=== PATIENT | female | born 1960 | race Caucasian/White ===

== ENCOUNTER 2020-05-14 07:18 | Emergency (ER) | payer OTHER, SELFPAY ==
[2020-05-14 08:11] VITALS: BP 153/74; PULSE 75; RESP 16; TEMP 36.6; O2SAT 98; BMI 32.0
--- NOTE | 2020-05-14 08:29 | XR_ITS ---
EXAMINATION: RIGHT FOOT, RIGHT ANKLE AND RIGHT TIBIA AND FIBULA. CLINICAL INFORMATION: Fall. COMPARISON: None TECHNIQUE: 3 views right foot. 2 views right ankle and 2 views right tibia and fibula. FINDINGS: RIGHT FOOT: There is hallux valgus deformity first MTP joint. No visible acute fracture, dislocation or subluxation. There is absent distal segment proximal phalanx fourth digit likely surgically or congenitally absent. RIGHT ANKLE: There is no visible acute fracture, dislocation or subluxation. There is mild lateral malleolar soft tissue swelling laterally ligamentous injury. The soft tissues are normal. RIGHT TIBIA AND FIBULA: There is a comminuted fracture proximal fibula with mild anterior displacement of distal fragment. No other fractures seen. Minimal prominence of soft tissue. XR/XR foot RT min 3V IMPRESSION: Hallux valgus deformity first MTP joint with no visible acute fracture or dislocation right foot. Lateral malleolar soft tissue swelling right ankle likely ligamentous injury. No visible fracture seen. Comminuted fracture proximal fibula.
--- NOTE | 2020-05-14 08:29 | XR_ITS ---
EXAMINATION: RIGHT FOOT, RIGHT ANKLE AND RIGHT TIBIA AND FIBULA. CLINICAL INFORMATION: Fall. COMPARISON: None TECHNIQUE: 3 views right foot. 2 views right ankle and 2 views right tibia and fibula. FINDINGS: RIGHT FOOT: There is hallux valgus deformity first MTP joint. No visible acute fracture, dislocation or subluxation. There is absent distal segment proximal phalanx fourth digit likely surgically or congenitally absent. RIGHT ANKLE: There is no visible acute fracture, dislocation or subluxation. There is mild lateral malleolar soft tissue swelling laterally ligamentous injury. The soft tissues are normal. RIGHT TIBIA AND FIBULA: There is a comminuted fracture proximal fibula with mild anterior displacement of distal fragment. No other fractures seen. Minimal prominence of soft tissue. XR/XR ankle RT 2V IMPRESSION: Hallux valgus deformity first MTP joint with no visible acute fracture or dislocation right foot. Lateral malleolar soft tissue swelling right ankle likely ligamentous injury. No visible fracture seen. Comminuted fracture proximal fibula.
--- NOTE | 2020-05-14 08:29 | XR_ITS ---
EXAMINATION: RIGHT FOOT, RIGHT ANKLE AND RIGHT TIBIA AND FIBULA. CLINICAL INFORMATION: Fall. COMPARISON: None TECHNIQUE: 3 views right foot. 2 views right ankle and 2 views right tibia and fibula. FINDINGS: RIGHT FOOT: There is hallux valgus deformity first MTP joint. No visible acute fracture, dislocation or subluxation. There is absent distal segment proximal phalanx fourth digit likely surgically or congenitally absent. RIGHT ANKLE: There is no visible acute fracture, dislocation or subluxation. There is mild lateral malleolar soft tissue swelling laterally ligamentous injury. The soft tissues are normal. RIGHT TIBIA AND FIBULA: There is a comminuted fracture proximal fibula with mild anterior displacement of distal fragment. No other fractures seen. Minimal prominence of soft tissue. XR/XR tibia fibula RT 2V IMPRESSION: Hallux valgus deformity first MTP joint with no visible acute fracture or dislocation right foot. Lateral malleolar soft tissue swelling right ankle likely ligamentous injury. No visible fracture seen. Comminuted fracture proximal fibula.
--- NOTE | 2020-05-14 08:42 | ED_ITS ---
HPI - Extremity Injury (Lower) General Chief Complaint: Extremity Injury, Lower Stated Complaint: LEG PAIN Time Seen by Provider: 05/14/20 08:21 Source: patient Mode of arrival: ambulatory History of Present Illness HPI Narrative: 60-year-old female with a past medical history of asthma, hypertension presenting to the ED complaining of right lower extremity pain s/p mechanical fall last night. Reports leg gave out and fell to ground, denies head trauma or LOC. Denies other symptoms prior to fall. Reports associated numbness. Denies injury to other area. Reports difficulty with ambulating secondary to pain MD complaint: leg injury Related Data Previous Rx's Medication Instructions Recorded hydrocodone-acetaminophen [Mifflin] 1 tab PO Q8H PRN 3 Days #9 tab 05/14/20 Allergies Allergy/AdvReac Type Severity Reaction Status Date / Time Sulfa (Sulfonamide Allergy Unknown Unknown Verified 05/14/20 08:29 Antibiotics) Review of Systems Review of Systems: Constitutional: No Weight loss, No Fever, No Chills Cardiovascular: No Chest Pain, No SOB Respiratory: No Cough, No Sputum, No Wheezing Musculoskeletal:+ joint pain, No Myalgias, + Joint Swelling Skin: No Skin Lesions, No rash Neuro: No Weakness, + Numbness Yes all other systems are reviewed and are negative [facility] Past Medical History Attestation statement: The following information was validated with the patient. Medical History (Updated 05/14/20 @ 09:38 by MARCELL Adkins) Asthma Hypertension Surgical History (Updated 05/14/20 @ 08:13 by Brian Vuong) H/O tubal ligation Hx of appendectomy Physical Exam Vital Signs: Vital Signs: Last Vital Signs Temp 98.8 F 05/14/20 09:07 Pulse 87 05/14/20 09:07 Resp 16 05/14/20 09:07 BP 137/73 05/14/20 09:07 Pulse Ox 97 05/14/20 09:07 Body Mass Index 32.0 Const: General: cooperative and comfortable Orientation/consciousness: patient oriented x3 Limitations: no limitations HENMT: Head: Yes normal to inspection Ears: hearing grossly normal bilaterally General nose exam: Normal external nose present Face and sinus: Yes normal facial exam Eyes: General: appearance normal, both eyes and all related structures EOM: EOMs intact bilaterally Neck: Neck: Yes normal visual inspection and Yes no meningeal signs Resp: Effort & Inspection: normal respiratory effort Cardio: Rate: regular rate Peripheral pulses: dorsalis pedis present GI: Inspection: Yes normal to inspection Skin: Rashes: no rashes Wounds: no wounds Neuro: General: patient oriented x3 and no meningeal signs Extrem: Other: RLE with +ttp to proximal/mid fibula/tibia and lateral malleolus with swelling and ttp Sensation intact to light touch. Neurovascularly intact Limited ROM to ankle secondary to pain Course Course Course Narrative: X-ray showing comminuted fracture proximal fibula. And lateral malleolar soft tissue swelling with likely ligamentous injury > patient was placed in knee immobilizer and spine with crutches in the ED to follow-up with orthopedics. Nonweightbearing. MDM - Extremity Injury (Lower) MDM Narrative Medical decision making narrative: Concern for fracture versus dislocation chiquita nevaeh MSK pain Discharge Plan Discharge Clinical Impression: Fracture of fibula, proximal Qualifiers: Encounter type: initial encounter Fracture type: closed Fracture morphology: unspecified fracture morphology Laterality: right Qualified Code(s): S82.831A - Other fracture of upper and lower end of right fibula, initial encounter for closed fracture Sprain of ankle Qualifiers: Encounter type: initial encounter Involved ligament of ankle: unspecified ligament Laterality: right Qualified Code(s): S93.401A - Sprain of unspecified ligament of right ankle, initial encounter Patient Disposition: Home, Self-Care Instructions: Leg Fracture (ED) Additional Instructions: You have a fracture of her proximal fibula Keep knee immobilizer on at all times, only remove to shower Do not bear any weight on your right leg Follow-up with the orthopedic doctor within 1 week Ice and elevate her leg Take Tylenol Motrin every 4-6 hours In addition Mifflin is no opiate pain medication, take only when pain is severe for the next 3 days. Be aware Mifflin as Tylenol mixed in, do not exceed 4 g of Tylenol Thursday Prescriptions: New hydrocodone-acetaminophen [Mifflin] 5-325 mg tablet 1 tab PO Q8H PRN (Reason: severe pain) 3 Days Qty: 9 RF: 0 Referrals: Qasim Jose MD [Physician] - 1 week Interventions: ED Discharge Assessment Last Done: 05/14/20 09:47 Discharge Date/Time: 05/14/20 09:47
[2020-05-14 09:07] VITALS: BP 137/73; PULSE 87; RESP 16; TEMP 37.1; O2SAT 97
== END 2020-05-14 09:47 | disposition home or self-care (01) ==
PROVIDERS: Emergency Provider Emergency Medicine; PCP Internal Medicine
DX: S82.831A Other fracture of upper and lower end of right fibula, initial encounter for closed fracture (principal); S93.401A Sprain of unspecified ligament of right ankle, initial encounter; W18.30XA Fall on same level, unspecified, initial encounter; I10 Essential (primary) hypertension; Y93.9 Activity, unspecified; Y92.019 Unspecified place in single-family (private) house as the place of occurrence of the external cause; Y99.9 Unspecified external cause status
CPT/HCPCS: 73590; 73600; 73630; 99283

== ENCOUNTER → 2020-05-18 12:49 | Outpatient (BNVA) | payer OTHER, SELFPAY | PROVIDERS: PCP Internal Medicine; Visit Provider Physician Assistant ==

== ENCOUNTER 2020-07-17 14:40 | Outpatient (REF) | payer OTHER, SELFPAY ==
--- NOTE | ~2020-07-17 | MM_ITS ---
EXAMINATION: BONE DENSITOMETRY CLINICAL INDICATION: Screening for osteoporosis. COMPARISON: None (current study represents initial baseline exam). TECHNIQUE: Using a [employer] DXA System (software version: 13.1) manufactured by [employer], dual-energy x-ray absorptiometry was performed of the lumbar spine and left hip. The images are of good technical quality. Summary results are attached. FINDINGS: AP SPINE L1-L4: BMD 1.086 g/cm2, Z-score 0.2, T-score -0.8, normal. LEFT FEMUR, NECK: BMD 0.781 g/cm2, Z-score -0.8, T-score -1.8, osteopenia. LEFT FEMUR, TOTAL: BMD 0.863 g/cm2, Z-score -0.4, T-score -1.1, osteopenia. IDENTIFIED RISK FACTORS: Low calcium intake, history of fracture (adult), glucocorticoids (chronic), menopause. HISTORY OF FRACTURE: Lower leg/ankle. MEDICATIONS: None listed. MM/XR DEXA axial skeleton IMPRESSION: 1. DIAGNOSIS: Osteopenia based on the lowest T-score value of -1.8 in the femoral neck applying World Health Organization criteria. 2. 10-YEAR FRACTURE RISK PREDICTION, FRAX: Major osteoporotic fracture (clinical spine, forearm, hip or shoulder) 24.3%. Hip fracture 3.5%. 3. Treatment Recommendations: NOF guidelines recommend consideration for treatment in postmenopausal women and men age 50 and older presenting with the following: -A hip or vertebral (clinical or morphometric) fracture. -T-score less than or equal to -2.5 at the femoral neck or spine after appropriate evaluation to exclude secondary causes. -Low bone mass at the hip or spine and a 10-year fracture probability by FRAX of greater than or equal to 3% for hip fracture or greater than or equal to 20% for major osteoporotic fracture based on the [place] adapted WHO algorithm. 4. Other Recommendations: All treatment decisions require clinical judgment and consideration of individual patient factors, including patient preferences, comorbidities, previous drug use, risk factors not captured in the FRAX model (e.g. frailty, falls, vitamin D deficiency, increased bone turnover, interval significant decline in bone density) and possible under or overestimation of fracture risk by FRAX. Additional medical evaluation for secondary cause of low bone mineral density may be appropriate. FUTURE SCAN RECOMMENDATION: People with diagnosed cases of osteoporosis or at high risk for fracture should have regular bone mineral density tests. For patients eligible for Medicare, routine testing is allowed once every 2 years. The testing frequency can be increased to one year for patients who have rapidly progressing disease, those who are receiving or discontinuing medical therapy to restore bone mass, or have additional risk factors.
== END 2020-07-17 14:41 | disposition home or self-care (01) ==
LOC: HO.MAMMO 14:40
PROVIDERS: Visit Provider Internal Medicine
DX: M81.8 Other osteoporosis without current pathological fracture (principal); E58 Dietary calcium deficiency; Z78.0 Asymptomatic menopausal state; Z79.52 Long term (current) use of systemic steroids
CPT/HCPCS: 77080

== ENCOUNTER → 2020-10-09 14:52 | Outpatient (BNVA) | payer OTHER, SELFPAY | PROVIDERS: Visit Provider Internal Medicine Endocrinology, Diabetes & Metabolism ==

== ENCOUNTER 2020-10-10 14:44 | Outpatient (REF) | payer OTHER, SELFPAY ==
[2020-10-10 15:51] LABS: Hematocrit 34.7 % (37-47); Hemoglobin 11.5 g/dl (12.0-16.0); Mean Corpuscular HGB Conc 33.1 g/dl (31.0-35.0); Mean Corpuscular Hemoglobin 33.8 pg (27.0-33.0); Mean Corpuscular Volume 102.1 fL (80-98); Mean Platelet Volume 10.8 fL (9.4-12.3); Platelet Count 283 X10*3/uL (160-400); Red Cell Distribution Width 13.8 % (11.0-16.0); White Blood Count 3.3 X10*3/uL (4.8-10.8)
[2020-10-10 16:13] LABS: Alanine Aminotransferase 20 U/L (0-31); Albumin Level 4.6 g/dL (3.5-5.0); Alkaline Phosphatase 79 U/L (39-117); Anion Gap 14 (12-20); Aspartate Amino Transferase 18 U/L (5-31); Bilirubin Total 0.6 mg/dL (0.0-1.0); Blood Urea Nitrogen 11 mg/dL (9-16); Calcium 9.6 mg/dL (8.4-10.2); Carbon Dioxide 25 mmol/L (22-29); Chloride 104 mmol/L (96-108); Estimated Glomerular Filt Rate > 60; Glucose Fasting 92 mg/dL (60-99); Potassium 4.4 mmol/L (3.3-5.1); Sodium 139 mmol/L (135-145); Total Protein 6.8 g/dL (6.5-8.0)
[2020-10-10 16:35] LABS: Thyroid Stimulating Hormone 0.48 uIU/mL (0.32-4.0); Vitamin D 25-OH Total 19.1 ng/mL (>30)
[2020-10-11 15:27] LABS: Calcium (PTHI) 9.8 mg/dL (8.6-10.4); PTHI 43 pg/mL (14-64)
[2020-10-12 07:41] LABS: Prot Elec - Albumin 4.5 g/dL (3.8-4.8); Prot Elec - Alpha1 0.3 g/dL (0.2-0.3); Prot Elec - Alpha2 0.7 g/dL (0.5-0.9); Prot Elec - Beta 1 0.5 g/dL (0.4-0.6); Prot Elec - Beta 2 0.3 g/dL (0.2-0.5); Prot Elec - Gamma 0.8 g/dL (0.8-1.7)
[2020-10-13 10:03] LABS: Alkaline Phosphatase Bone 11.5 mcg/L (5.6-29.0)
[2020-10-14 11:46] LABS: VITAMIN D (1,25 OH) D3 46 pg/mL; Vit D (1,25-Dihydroxy) Total 46 pg/mL (18-72); Vitamin D (1,25 OH) D2 <8 pg/mL
== END 2020-10-10 14:45 | disposition home or self-care (01) ==
LOC: HO.LAB 14:44
PROVIDERS: PCP Internal Medicine; Visit Provider Internal Medicine Endocrinology, Diabetes & Metabolism
DX: M81.0 Age-related osteoporosis without current pathological fracture (principal)
CPT/HCPCS: 36415; 80053; 82306; 82652; 83970; 84075; 84155; 84165; 84439; 84443; 85027

== ENCOUNTER 2020-11-08 13:25 | Outpatient (REF) | payer OTHER, SELFPAY ==
[2020-11-08 15:01] LABS: Albumin Level 4.5 g/dL (3.5-5.0); Calcium 9.8 mg/dL (8.4-10.2)
[2020-11-08 15:29] LABS: Vitamin D 25-OH Total 27.7 ng/mL (>30)
== END 2020-11-08 13:26 | disposition home or self-care (01) ==
LOC: HO.LAB 13:25
PROVIDERS: PCP Internal Medicine; Visit Provider Internal Medicine Endocrinology, Diabetes & Metabolism
DX: M81.0 Age-related osteoporosis without current pathological fracture (principal); E55.9 Vitamin D deficiency, unspecified
CPT/HCPCS: 36415; 82040; 82306; 82310

== ENCOUNTER 2020-11-10 14:02 | Outpatient (REF) | payer OTHER, SELFPAY ==
[2020-11-11 06:21] LABS: Creatinine, 24Hr Urine 0.9 G/Day (1.0-2.0); Total Volume 24 Hour Urine 650 mL
[2020-11-11 17:56] LABS: Calcium/Creatinine Ratio 74 mg/g creat (30-275); Creatinine 24Hr Urine 0.83 g/24 h (0.50-2.15)
[2020-11-13 11:47] LABS: PEU-PROT/CRE Ratio mg/mg 0.108 (< OR = 0.114); PEU24-Albumin Urine 100 %; PEU24-Alpha 1 Globulin 0 %; PEU24-Alpha 2 Globulin 0 %; PEU24-Beta Globulin 0 %; PEU24-Gamma Globulin 0 %; Total Protein 24Hr Urine 91 mg/24 h (<150); Total Protein/Creat Ratio 24h 108 mg/g creat (< OR = 114)
[2020-11-14 18:51] LABS: N-Telopeptide 73 (see note); NTXCreaRU 145 mg/dL (20-275)
== END 2020-11-10 14:03 | disposition home or self-care (01) ==
LOC: HO.LAB 14:02
PROVIDERS: PCP Internal Medicine; Visit Provider Internal Medicine Endocrinology, Diabetes & Metabolism
DX: M81.0 Age-related osteoporosis without current pathological fracture (principal); E55.9 Vitamin D deficiency, unspecified
CPT/HCPCS: 82340; 82523; 82570; 84156; 84166

== ENCOUNTER 2021-01-10 14:43 | Outpatient (REF) | payer OTHER, SELFPAY ==
[2021-01-10 15:54] LABS: Iron 76 mcg/dL (30-160); Percent Iron Saturation 22 % (15-50); Total Iron Binding Capacity 348 mcg/dL (228-428); Unsaturated Iron Binding 272 ug/dL
[2021-01-10 16:25] LABS: Folate 8.2 ng/mL (> or = 4.0); Vitamin B12 179 pg/mL (200-900)
[2021-01-10 16:28] LABS: Ferritin 30 ng/mL (10-250)
== END 2021-01-10 14:44 | disposition home or self-care (01) ==
LOC: HO.LAB 14:43
PROVIDERS: PCP Internal Medicine; Visit Provider Internal Medicine
DX: K58.9 Irritable bowel syndrome, unspecified (principal); D64.9 Anemia, unspecified
CPT/HCPCS: 36415; 82607; 82728; 82746; 83540

== ENCOUNTER 2021-01-13 | Outpatient (REF) | payer OTHER, SELFPAY ==
[2021-01-14 13:44] LABS: OBS Int Ctl Valid YES; OBS1 NEGATIVE (NEGATIVE); OBS2 NEGATIVE (NEGATIVE); OBS3 NEGATIVE (NEGATIVE)
== END 2021-01-13 00:01 | disposition home or self-care (01) ==
LOC: HO.LNP
PROVIDERS: Visit Provider Internal Medicine
DX: K58.9 Irritable bowel syndrome, unspecified (principal)
CPT/HCPCS: 82270